=== PATIENT | male | born 1955 | race Caucasian/White ===

== ENCOUNTER 2024-08-15 11:38 | Inpatient (IN) | payer OTHER, SELFPAY ==
[2024-08-15] VITALS (8 sets, daily range): BP systolic 126–180; BP diastolic 65–92; BMI 35.6
[2024-08-15 06:39] LABS: % Basophils 0.2 % (0-2); % Eosinophils 4.1 % (0-6); % Immature Granulocytes 0.2 % (0-0.5); % Lymphocytes 4.3 % (20.5-51.1); % Monocytes 6.5 % (1.7-9.3); % Neutrophils 84.7 % (42.2-75.2); ALT (SGPT) 45 U/L (0-50); AST (SGOT) 33 U/L (17-59); Absolute Eosinophils 0.2 10^3/uL (0-0.7); Absolute Lymphocytes 0.2 10^3/uL (1.2-3.4); Absolute Monocytes 0.3 10^3/uL (0.1-0.6); Absolute Neutrophils 3.5 10^3/uL (1.4-6.5); Albumin 4.5 g/dl (3.5-5.0); Alkaline Phosphatase 63 U/L (38-126); Blood Urea Nitrogen 17 mg/dl (9-20); Calcium 9.2 mg/dl (8.4-10.2); Carbon Dioxide 23 mmol/L (22-30); Chloride 111 mmol/L (98-107); Estimated Creatinine Clearance 118 ml/min; Glucose 107 mg/dl (70-99); Hematocrit 42.9 % (39.0-52.0); Hemoglobin 15.2 g/dL (13.0-18.0); Mean Corp Hgb Conc. 35.4 g/dL (33.0-37.0); Mean Corpuscular Volume 93.1 fL (80.0-94.0); Mean Platelet Volume 12.1 fL (7.4-10.4); Nucleated Red Blood Cells % 0 % (-); Platelet Count 97 10^3/uL (130-400); Potassium 4.6 mmol/L (3.5-5.1); Red Blood Cell Count 4.61 10^6/uL (4.70-6.10); Red Cell Dist. Width 11.9 % (11.5-14.5); Sodium 139 mmol/L (135-145); Total Bilirubin 0.7 mg/dl (0.2-1.3); Total Protein 6.6 g/dl (6.3-8.2); White Blood Cell Count 4.2 10^3/uL (4.8-10.8); eGFR > 60.00
--- NOTE | 2024-08-15 06:49 | ED.GENMED ---
History of Present Illness
General
Chief Complaint: Allergic Reaction
Source: patient and spouse
Exam Limitations: none
Time Seen by Provider: 08/15/24 06:36
Nursing documentation reviewed up to this point in time: agreed with
History of Present Illness
History of Present Illness:
69-year-old male with past medical history of rheumatoid arthritis, hyperlipidemia who presents to the emergency department with his for evaluation of rash and myalgias. Patient reports history of RA and he takes weekly subcutaneous injections
of Actemra. Last week he developed a very small ulcer on the plantar surface of the left foot with some surrounding redness; he has a history of severe infections and given immunocompromise on biologic agent he was started by his primary doctor on
cephalexin and Bactrim which he has been taking x 7 days without a missed dose. The small wound has essentially completely healed and he longer has any redness on the foot. He was supposed to complete a 14-day course of antibiotics. Yesterday he
woke up and his noticed that he had some redness in his right eye. As the morning went on started to develop rash in the neck/upper chest as well as on the arms; no rash on the back or abdomen or on the legs. Rash is nonpruritic, mildly
painful�'like a sunburn.' Today started to develop headache, joint pains, stiffness in the neck and back and generalized achiness. No fever noted. Came to the emergency room for evaluation. He does note that he is typically told to hold his
Actemra when he has an infection however he did take his normal dose yesterday given improvement in his symptoms on the left foot.
Past History
Past History
ED Past Medical History: Hypercholesterolemia and Other (RA, right knee MRSA abscess/cellulitis)
ED Past Surgical History: Orthopedic
Patient has exhibited threatening behavior?: No
PSI?: No
Social History
Tobacco: Non-smoker
Alcohol: Occasional
Personal:
Living: with family
Employment: Employed
Family History
Family History: CAD
Review of Systems
Review of Systems
All Other Systems: ROS reviewed and negative except as documented in HPI and ROS
Constitutional: Reports fatigue; Denies fever
EENT: Denies sore throat or runny nose
Respiratory: Denies cough or trouble breathing
Cardiac: Denies chest pain or palpitations
ABD/GI: Denies abdominal pain, nausea or vomiting
: Denies flank pain
Musculoskeletal: Reports joint pain, muscle pain, muscle stiffness, neck pain and back pain
Skin: Reports rash
Neurological: Reports headache
Phy Exam
Physical Exam
Physical Exam:
General: Awake, alert; no acute distress
Head: Normocephalic, atraumatic
Eyes: Patient has some slight conjunctival injection bilaterally; pupils equal round reactive to light bilaterally
Throat: Airway intact, handling secretions, no cracking of the lips, no ulcerations noted in the mouth or on the tongue
Neck: Trachea midline, supple without meningismus
Lungs: Clear to auscultation bilaterally, no wheezing, rales, rhonchi
Heart: Regular rate and rhythm, no murmurs, gallops, or rubs
Abd: Soft, non distended, nontender
Neuro: No gross deficits
Skin: Patient has erythematous maculopapular rash anterior neck and bilateral upper extremities right greater than left as well as on the cheeks bilaterally and slightly on the forehead
Extremities: Patient does have small right knee effusion, no other joint effusions noted, good range of motion in all joints although has mild pain and stiffness on range of motion of the right knee; good pulses in all extremities; on exam of the
left foot previously reported wound seems to have healed up and there is no erythema, warmth, crepitus
Scores
Heart Failure Risk
Heart Failure Risk Score: Not Applicable
Heart Score for Chest Pain Patients
STEMI patient?: Not applicable
Withdrawal Assessment of Alcohol
Withdrawal Assessment Completed?: Not applicable
Course
Orders/Labs/Results
Orders:
Orders
08/15/24 06:15
CMP [Comprehensive Metabolic Panel] Urgent
Complete Blood Count/With Diff Urgent
Abnormal Lab Results
08/15/24
06:15
WBC 4.2 L 10^3/uL
(4.8-10.8)
RBC 4.61 L 10^6/uL
(4.70-6.10)
MCH 33.0 H pg
(27.0-31.0)
Plt Count 97 L 10^3/uL
(130-400)
MPV 12.1 H fL
(7.4-10.4)
Absolute Lymphs (auto) 0.2 L 10^3/uL
(1.2-3.4)
Neutrophils % 84.7 H %
(42.2-75.2)
Lymphocytes % 4.3 L %
(20.5-51.1)
Chloride 111 H mmol/L
(98-107)
Glucose 107 H mg/dl
(70-99)
08/15/24 06:15
08/15/24 06:15
Vital Signs
Initial and Last Documented VS:
Initial Vital Signs
Temp Pulse Resp BP Pulse Ox
36.6 C 78 20 180/92 98
08/15/24 04:59 08/15/24 04:59 08/15/24 04:59 08/15/24 04:59 08/15/24 04:59
Last Documented Vital Signs
Temp Pulse Resp BP Pulse Ox
36.6 C 74 15 126/65 99
08/15/24 04:59 08/15/24 07:15 08/15/24 07:15 08/15/24 07:00 08/15/24 07:15
MDM/Problems Addressed
Differential Diagnosis Includes:
Drug rash, allergic reaction, DRESS, SJS
MDM/Problems Addressed:
69-year-old male with history as noted presents with generalized achiness and rash that has developed in the setting of recent treatment with Bactrim/Keflex for minor left foot infection; he is also on Actemra and had a dose yesterday. He has no
fever here�hypertensive in triage normalized by my assessment, rest of vitals normal. Physical exam as documented notable for maculopapular rash mainly on the arms and anterior neck/upper chest. Rash appears most consistent with a drug rash likely
triggered by recent antibiotics (Bactrim would be most likely offending agent). He has no fever, reassuring labs (no anemia, neutropenia, thrombocytopenia, no leukocytosis, no eosinophilia, normal LFTs, normal renal function) which goes against
diagnosis of DRESS. He does however have systemic prodrome and conjunctivitis which raises some suspicion for Hawthorne-Kameron syndrome (fortunately he has no blistering/sloughing of the skin and no oral lesions) for this reason I think he should be
hospitalized for close observation and supportive care, immediately discontinue antibiotics. Case discussed with hospitalist for admission.
Chronic conditions affecting care:
Rheumatoid arthritis
Acute Exacerbation and/or Progression of Chronic Illness:
Acutely hypertensive improved without intervention�no indication for emergent antihypertensives
Acute Exacerbation and/or Progression of Chronic Illness: HTN
*Pulse Oximetry
Patient hypoxic: no
*Critical Care Note
Total Time (30-74mins, 75-104mins- exclusive of procedures): Not Applicable
Data Reviewed
Review of Other/Old Records Reveals: Labs and Records
Source: patient and spouse
Patient Management
Discussion with other providers: Hospitalist (Discussed with hospitalist)
Escalation/DeEscalation of care consider admission/obs:
Admission indicated
ED Attending Note
-
Portions of this chart may have been created with voice recognition software.� Occasional wrong word or��sound alike� substitutions may have occurred due to the inherent limitations of voice recognition software.
Discharge Plan
Departure
Patient Disposition: Admit
Date of Disposition: 08/15/24
Time of Disposition: 07:18
Admit to doctor: [facility]
Presentation/result/management discussed w/ accepting MD/DO: Hospitalist
Discharge Problem:
Hawthorne-Kameron syndrome
Prescriptions:
No Action
diclofenac sodium 75 MG tablet,delayed release (DR/EC)
75 mg PO DAILY
Actemra 162 MG/0.9 ML syringe
162 mg SC SA
rosuvastatin 5 mg Tablet
5 mg PO DAILY
duloxetine 60 mg Capsule,Delayed Release(Dr/Ec)
60 mg PO BID
acetaminophen 325 mg Tablet
650 mg PO Q4HPRN PRN (Reason: mild pain/FINE/temp> 100.4F) Qty: 30 0RF
cephalexin 500 mg capsule
500 mg PO BID
Referrals:
Terence Scott DO [Family Provider] -
Interventions
Interventions:
*Risk Screen - Suicide Last Done: 08/15/24 04:59
*Neglect/Abuse Screening Last Done: 08/15/24 04:59
*ED- Fall Risk Assessment Last Done: 08/15/24 07:21
*ED COVID-19 Vaccine History Last Done: 08/15/24 07:21
ED- Cardiac Assessment Last Done: 08/15/24 07:21
ED- Pulmonary Assessment Last Done: 08/15/24 07:21
ED-Skin Assessment Last Done: 08/15/24 07:21
Discharge Date and Time
Print Language: LITHUANIAN
[2024-08-15 09:28] LABS: INR 1.06; PT 14.1 Sec (11.4-14.6)
[2024-08-15 09:29] LABS: APTT 27.7 Sec (23.4-35.0)
[2024-08-15 10:16] LABS: C-Reactive Protein < 5.00 mg/L (0.0-10.00)
[2024-08-15 10:59] LABS: Erythrocyte Sed Rate 3 mm/hour (0-20)
--- NOTE | 2024-08-15 11:25 | HPS.HSE ---
Family Physician
-
Family Physician: Terence Scott
Chief Complaint
-
Eye pain, skin rash, neck stiffness, bilateral knee pain
History of Present Illness
Patient with a history of rheumatoid arthritis on Actemra and recurrent cellulitis noted at left plantar foot ulcer that week ago and was put on cephalexin and Bactrim by PCP. Today is day 8 of antibiotic. It was prescribed for 14 days.
The ulcer and surrounding redness has resolved.
Yesterday he started to notice right eye burn and then left eye burn. noticed right face was red. He started to have redness involving bilateral arms like a sunburn with the pain. Nonpruritic. No rash elsewhere.
Denies any oral ulcers.
He started to have neck stiffness and back ache. He started to also notice bilateral knee pain and swelling. The right knee swelling is quite obvious and was having difficulty to weight-bear.
He stopped taking his Bactrim thinking that may be a reaction to it. He did take his dose of Actemra yesterday.
He does not give a history of fever or chills. He has been weak in general.
No trauma denies.
He has history of penicillin and has tolerated cephalosporins in the past.
Denies any dysuria or genital area ulceration.
No shortness of breath, chest pain, nausea vomiting or diarrhea.
No dizziness or lightheadedness.
Medical History
Past Medical History
Past Medical History: Reports Other (RA on immunologic, MRSA right lower extremity with abscess in the past, HLD, depression)
Past Surgical History: Reports Other (Bursa removal right knee June 2022 with MRSA)
Social History
Tobacco: Non-smoker
Alcohol: Occasional (2 drinks on the weekends)
Personal:
Living: With Family ()
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
Family History
Family History: Not pertinent
Allergies / Home Medications
Allergies reflects when Allergies were last updated in [facility].
Home Medications with original date entered in [facility]
Allergy/Medication List:
Allergies
Allergy/AdvReac Type Severity Reaction Status Date / Time
latex Allergy Rash Verified 07/18/22 06:17
Penicillins Allergy Rash; Verified 07/18/22 12:41
tolerates
cephalosporins
Home Medications
diclofenac sodium 75 mg tablet,delayed release 75 mg PO DAILY Pain 02/04/18
tocilizumab 162 mg/0.9 mL subcutaneous syringe (Actemra) 162 mg SC SA Rheumatoid arthritis 02/04/18
duloxetine 60 mg capsule,delayed release 60 mg PO BID Depression 02/11/22
rosuvastatin 5 mg tablet 5 mg PO DAILY High cholesterol 02/11/22
mupirocin 2 % topical ointment 1 applic topical . DIRECTED 01/07/23
Review of Systems
-
A 12 point ROS was completed and negative except as noted: Yes
Physical Exam
Vital Signs
Vital Signs
Temp Pulse Resp BP Pulse Ox
97.8 F 78 19 131/65 99
08/15/24 04:59 08/15/24 11:00 08/15/24 11:00 08/15/24 10:00 08/15/24 07:45
Physical Exam
General: Comfortable
HEENT: Moist mucous membranes and Other (no redness of eyes;no teary eyes)
Respiratory: Clear and Non Labored Respirations; No Accessory Resp Muscle Use
Cardiac: S1/S2 and Regular Rhythm; No Tachycardia
GI: Soft, Non Tender, Non Distended and Normal Bowel Sounds
Musculoskeletal: Other (Right knee effusion. Dry scabbed lesion on the right knee)
Skin: Rash (Redness over bilateral arms like erythroderma but no bullae or macular papular rash elsewhere.)
Neuro: AO x 3; No No Motor Deficits, Slurred Speech, Facial Droop or Tremors
Psych: Calm; No Confused
Laboratory Results
-
08/15/24 06:15
08/15/24 06:15
Laboratory Results
PT 14.1 Sec (11.4-14.6) 08/15/24 09:09
INR 1.06 08/15/24 09:09
APTT 27.7 Sec (23.4-35.0) 08/15/24 09:09
Total Bilirubin 0.7 mg/dl (0.2-1.3) 08/15/24 06:15
AST 33 U/L (17-59) 08/15/24 06:15
ALT 45 U/L (0-50) 08/15/24 06:15
Alkaline Phosphatase 63 U/L (38-126) 08/15/24 06:15
Data Reviewed
-
Lab Data: Labs Reviewed by me
Impression/Plan
-
Acute onset of painful eyes, rash on arms, neck stiffness and bilateral knee pain and effusion while on antibiotics with cephalexin and Bactrim. No systemic toxicity. White count is normal. His levels are normal. ESR CRP is also normal. LFTs
normal. Based on the symptomatology suspect more likely serum sickness like reaction to Bactrim.
Check complement levels. Hold Bactrim. Hold on steroids.
His systemic symptoms are nonspecific-rule out any infectious etiology-consult ID
Arthralgia associated serum sickness. Not sure if effusions would be evident. He has prominent right knee effusion which is symptomatic. Rule out this is a rheumatoid arthritis flare. Consult rheumatology
History of rheumatoid arthritis on Actemra
Hyperlipidemia-continue with statins
Depression-continue duloxetine
[2024-08-15] MEDS: TYLENOL 650 MG PO ×2 (12:00→19:05)
--- NOTE | 2024-08-15 14:22 | CON.ID ---
Consultation
-
Date/Time Consultation Requested: August 15, 2024 1154
Date/Time Consultation Performed: August 15, 2024 1420
Requesting Provider: Dr. Abraham Montgomery
Performing Provider: Dr. Altagracia Lujan
Reason for Consultation: History of MRSA cellulitis possible drug reaction
Chief Complaint / Past History
Chief Complaint
Rash, eye pain, joint pains
History of Present Illness
69-year-old male with history of rheumatoid arthritis on Actemra, history of recurrent MRSA soft tissue abscess last being June 2022 who recently developed a left plantar wound with erythema. His primary care physician prescribed cephalexin 1
tablet twice daily and Bactrim 1 tablet twice daily to complete 14 days. He was on day 9 of the antibiotic yesterday. His noted that the patient woke up with somewhat red conjunctiva right eye. Patient did not feel anything. He gave himself
the Actemra around 7 AM. At 3 PM, his noted a rash that started on his right cheek. Patient was not feeling well complaining of joint pains. Both eyes were burning. He did take his antibiotics that evening then went to bed. Overnight he
developed worsening neck pain, shoulder pain, bilateral knee pain, headache. This morning woke up and noted to have sun-burn like rash on sun-exposed areas of face, neck, and bilateral arms. Rash is itchy. No fevers. No chills. No mouth lesions.
Patient tolerated Bactrim twice in the past. He also tolerated cephalexin in the past. No other new medicines. No ill contacts that he is aware of.
Past History
Additional Past Medical History:
Rheumatoid arthritis on Actemra.
Dyslipidemia.
history of recurrent MRSA soft tissue abscess
R knee MRSA septic bursitis s/p bursectomy 06/2022
History of right distal radius ORIF.
Right knee meniscal repair, 2014.
Allergy History:
latex Allergy (Verified 08/15/24 05:03)
Rash
Penicillins Allergy (Verified 08/15/24 05:03)
Rash; tolerates cephalosporins
Medications Reviewed: Yes
Current Antibiotics:
None
Social History
Tobacco: Former Smoker
Alcohol: None
Drug: None
Personal:
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
Family History
Family History: Not Pertinent
Review of Systems
Review of Systems
General: Negative Fever, Chills or Change in Appetite
HEENT: Negative Sinus Problems or Pharyngitis
Cardiovascular: Negative Chest Pain
Respiratory: Negative Dyspnea or Cough
Gasteroenterology: Negative Nausea, Vomiting or Diarrhea
Genital / Urological: Flank Pain; Negative Dysuria
Endocrine: Weakness
Musculoskeletal: Joint Pain, Joint Swelling (knees) and Myalgias
Skin / Hair / Nails: Rash and Pruritis
Neurological: Negative Dizziness
All systems: All other systems were reviewed and were negative
Vital Signs
Temp Pulse Resp BP Pulse Ox
97.8 F 78 19 131/65 99
08/15/24 04:59 08/15/24 11:00 08/15/24 11:00 08/15/24 10:00 08/15/24 07:45
Physical Exam
Physical Exam
Constitutional: Non-toxic
Head: Other (No frontal or maxillary sinus tenderness)
Eyes: Sclera Anicteric and Other (bilateral conjunctiva mildly injected)
Pharynx: Benign
Oral: No Ulcers
Cardiovascular: Regular Rate and S1/S2
Pulmonary: Clear
Gastrointestinal: Soft, Non Tender and Non Distended
Genito-Urinary: Negative CVA Tenderness
Musculoskeletal: Joint Effusion (R knee>L knee, no erythema)
Skin: Rash (Intense erythema face, neck, bilateral arms; maculopapular rash on medial arms. )
Neurological: AO x 3
Lab / Diagnostic Study Results
08/15/24 06:15
08/15/24 06:15
Abs Immat Gran (auto) 0.0 10^3/uL (0-0.05) 08/15/24 06:15
Absolute Neuts (auto) 3.5 10^3/uL (1.4-6.5) 08/15/24 06:15
Absolute Lymphs (auto) 0.2 10^3/uL (1.2-3.4) L 08/15/24 06:15
Absolute Monos (auto) 0.3 10^3/uL (0.1-0.6) 08/15/24 06:15
Absolute Basos (auto) 0.0 10^3/uL (0-0.2) 08/15/24 06:15
Immature Gran % 0.2 % (0-0.5) 08/15/24 06:15
Neutrophils % 84.7 % (42.2-75.2) H 08/15/24 06:15
Lymphocytes % 4.3 % (20.5-51.1) L 08/15/24 06:15
Monocytes % 6.5 % (1.7-9.3) 08/15/24 06:15
Eosinophils % 4.1 % (0-6) 08/15/24 06:15
Basophils % 0.2 % (0-2) 08/15/24 06:15
ESR 3 mm/hour (0-20) 08/15/24 06:15
PT 14.1 Sec (11.4-14.6) 08/15/24 09:09
INR 1.06 08/15/24 09:09
C-Reactive Protein < 5.00 mg/L (0.0-10.00) 08/15/24 06:15
Microbiology Results
Micro:
08/15/24 13:21 Blood Culture - Pending
Blood/Venous
08/15/24 12:01 Blood Culture - Pending
Blood/Venous
Assessment / Plan
# Sunburn pruritic rash, joint pains, bilateral conjunctivitis
# Suspect immune-mediated reaction to Bactrim (despite previous tolerance to Bactrim twice in the past)
# Leukopenia and thrombocytopenia - likely from myelosuppression due to Bactrim
-Avoid Bactrim
- Supportive care.
- No objection to steroid.
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
Rheumatoid arthritis on Actemra.
Dyslipidemia.
history of recurrent MRSA soft tissue abscess
R knee MRSA septic bursitis s/p bursectomy 06/2022
History of right distal radius ORIF.
Right knee meniscal repair, 2014.
Care Review
Plan reviewed with: Physician (Dr. Montgomery)
[2024-08-15] MEDS: VOLTAREN 75 MG PO (15:20)
[2024-08-15] MEDS: CRESTOR 5 MG PO (15:20)
[2024-08-15] MEDS: HEPARIN 5000 UNITS SC (15:22)
[2024-08-15] MEDS: CYMBALTA DELAYED RELEASE 60 MG PO (20:21)
[2024-08-16] VITALS (8 sets, daily range): BP systolic 116–154; BP diastolic 57–86; BMI 35.5; BMI 34.9
[2024-08-16] MEDS: HEPARIN SC (00:09)
[2024-08-16] MEDS: TYLENOL 650 MG PO ×3 (02:12→15:23)
[2024-08-16 06:35] LABS: % Basophils 0.5 % (0-2); % Eosinophils 8.6 % (0-6); % Immature Granulocytes 0.5 % (0-0.5); % Lymphocytes 16.3 % (20.5-51.1); % Monocytes 13.1 % (1.7-9.3); Absolute Eosinophils 0.2 10^3/uL (0-0.7); Absolute Lymphocytes 0.4 10^3/uL (1.2-3.4); Absolute Monocytes 0.3 10^3/uL (0.1-0.6); Absolute Neutrophils 1.4 10^3/uL (1.4-6.5); Hematocrit 41.5 % (39.0-52.0); Hemoglobin 14.5 g/dL (13.0-18.0); Mean Corp Hgb Conc. 34.9 g/dL (33.0-37.0); Mean Corpuscular Hgb 32.6 pg (27.0-31.0); Mean Corpuscular Volume 93.3 fL (80.0-94.0); Mean Platelet Volume 11.7 fL (7.4-10.4); Nucleated Red Blood Cells % 0 % (-); Platelet Count 93 10^3/uL (130-400); Red Blood Cell Count 4.45 10^6/uL (4.70-6.10); Red Cell Dist. Width 11.9 % (11.5-14.5); White Blood Cell Count 2.2 10^3/uL (4.8-10.8)
[2024-08-16 06:48] LABS: Blood Urea Nitrogen 13 mg/dl (9-20); Calcium 8.8 mg/dl (8.4-10.2); Carbon Dioxide 23 mmol/L (22-30); Chloride 112 mmol/L (98-107); Estimated Creatinine Clearance > 125 ml/min; Glucose 124 mg/dl (70-99); Potassium 4.5 mmol/L (3.5-5.1); Sodium 139 mmol/L (135-145); eGFR > 60.00
[2024-08-16 06:56] LABS: Complement C3 97 mg/dl (88-165)
[2024-08-16] MEDS: CYMBALTA DELAYED RELEASE 60 MG PO ×2 (08:36→20:28)
[2024-08-16] MEDS: CRESTOR 5 MG PO (08:36)
[2024-08-16] MEDS: HEPARIN 5000 UNITS SC ×3 (08:37→23:22)
[2024-08-16] MEDS: VOLTAREN 75 MG PO (09:34)
--- NOTE | 2024-08-16 10:22 | CM ---
CM met with pt and spouse bedside
Pt resides with spouse and his elderly in-laws in a 2SH with 3STE
Full flight to 2nd floor
Pt is indep with his ADLs
Denies use of DMEs
Noted financial difficulties with affording spouse's medications for terminal cancer
Now she is patient assistance programs which has greatly helped
PCP- Terence Scott
Rx- [facility]
Discharge Disposition- anticipate home no needs
--- NOTE | 2024-08-16 10:46 | W.PN.ID1 ---
Date of Service
Date of Service: August 16, 2024
Today's Communication
Continue supportive care.
Assessment / Plan
# Sunburn pruritic rash, joint pains, bilateral conjunctivitis
# Suspect immune-mediated reaction to Bactrim (despite previous tolerance to Bactrim twice in the past)
# Leukopenia and thrombocytopenia - likely from myelosuppression due to Bactrim
- Continue supportive care
- Follow cbc
- No infection issue at this time.
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
Rheumatoid arthritis on Actemra.
Dyslipidemia.
history of recurrent MRSA soft tissue abscess
R knee MRSA septic bursitis s/p bursectomy 06/2022
History of right distal radius ORIF.
Right knee meniscal repair, 2014.
Chief Complaint
-: Other (rash, joint pains)
Subjective / Review of Systems
Joint pains improving. Able to ambulate to bathroom this am.
Vital Signs / Physical Exam
Vital Signs
Vital Signs
Temp Pulse Resp BP Pulse Ox
98.2 F 72 16 122/86 96
08/16/24 07:15 08/16/24 02:10 08/16/24 02:10 08/16/24 06:08 08/16/24 06:08
Physical Exam
Constitutional: No Acute Distress, Comfortable and Non-toxic
Eyes: Other (Bilateral conjunctiva injected)
Cardiovascular: Regular Rate and S1/S2
Pulmonary: Clear
Gastrointestinal: Soft, Non Tender, Non Distended and Normal Bowel Sounds
Musculoskeletal: Joint Swelling (Right knee > L knee. No erythema, no warmth. ROM intact)
Skin: Rash (Erythroderma on face, BLE less intense)
Wound: Other (Left plantar shallow small wound dry, no surrounding erythema)
Neurological: AO x 3
Objective Data
Lab Data
Lab Results
08/16/24 06:08
08/16/24 06:08
ESR 3 mm/hour (0-20) 08/15/24 06:15
PT 14.1 Sec (11.4-14.6) 08/15/24 09:09
INR 1.06 08/15/24 09:09
APTT 27.7 Sec (23.4-35.0) 08/15/24 09:09
Estimated Creat Clear > 125 ml/min 08/16/24 06:08
Total Bilirubin 0.7 mg/dl (0.2-1.3) 08/15/24 06:15
AST 33 U/L (17-59) 08/15/24 06:15
ALT 45 U/L (0-50) 08/15/24 06:15
Alkaline Phosphatase 63 U/L (38-126) 08/15/24 06:15
C-Reactive Protein < 5.00 mg/L (0.0-10.00) 08/15/24 06:15
Most recent labs reviewed.
Micro Results:
08/16/24 09:50 MRSA Screen - Pending
Nose
08/15/24 13:21 Blood Culture - Pending
Blood/Venous
08/15/24 12:01 Blood Culture - Pending
Blood/Venous
--- NOTE | 2024-08-16 11:50 | W.PN.HOSP.TC ---
Today's Communication/Plan
-
Ice pack
Antihistamine
Trial of steroids
Assessment / Plan
Assessment / Plan
General: Comfortable
HEENT: Moist mucous membranes and Other (no redness of eyes;no teary eyes)
Respiratory: Clear and Non Labored Respirations; No Accessory Resp Muscle Use
Cardiac: S1/S2 and Regular Rhythm; No Tachycardia
GI: Soft, Non Tender, Non Distended and Normal Bowel Sounds
Musculoskeletal: Other (Right knee effusion. Dry scabbed lesion on the right knee)
Skin: Rash (Redness over bilateral arms like erythroderma but no bullae or macular papular rash elsewhere.)
Neuro: AO x 3; No No Motor Deficits, Slurred Speech, Facial Droop or Tremors
Psych: Calm; No Confused
#Pruritic rash, conjunctivitis bilateral, and joint pain suspected due to serum sickness from Bactrim
#Pruritic rash could also be sunburn rash
#Leukopenia and chronic thrombocytopenia
Patient remains afebrile. ESR normal. Complement level normal. Vital signs stable. Rash seems to be improving.
Hydroxyzine as needed
Ice packs
Trial of steroids
Follow-up on the MRSA screen and blood cultures-doubt infection
#History of rheumatoid arthritis on Actemra
Chronic right knee pain and swelling improving currently
Trial of steroids
#Hyperlipidemia-continue with statins
#Depression-continue duloxetine
#Obesity due to excess calories affects all aspects of medical care
Weight loss will help with overall joint pains
DVT prophylaxis with heparin
Discussed with spouse at bedside in detail
Anticipated Discharge: Within 24 hours
Subjective/Interval History
-
Date of Service: August 16, 2024
States of improvement in joint pains
States able to ambulate little bit better compared to yesterday
States of improvement in rash
Objective Data
-
Labs:
Laboratory Results
08/16/24
06:08
WBC 2.2 L*
Hgb 14.5
Hct 41.5
Plt Count 93 L
Sodium 139
Potassium 4.5
Chloride 112 H
Carbon Dioxide 23
BUN 13
Creatinine 0.7
Glucose 124 H
Calcium 8.8
Vital Signs:
Vital Signs
Temp Pulse Resp BP Pulse Ox
97.8 F 72 16 122/86 96
08/16/24 11:10 08/16/24 02:10 08/16/24 02:10 08/16/24 06:08 08/16/24 06:08
Data Reviewed
-
Total Time Spent with Patient (in minutes): 55
[2024-08-16] MEDS: DELTASONE 50 MG PO (12:30)
[2024-08-16] MEDS: PEPCID 20 MG PO (12:35)
[2024-08-16] MEDS: ATARAX 10 MG PO (15:23)
[2024-08-17 07:00] VITALS: BP 140/80
[2024-08-17] MEDS: DELTASONE 50 MG PO (07:44)
[2024-08-17] MEDS: TYLENOL 650 MG PO (07:44)
[2024-08-17] MEDS: PEPCID 20 MG PO (07:45)
[2024-08-17] MEDS: CRESTOR 5 MG PO (07:45)
[2024-08-17] MEDS: VOLTAREN 75 MG PO (07:45)
[2024-08-17] MEDS: HEPARIN 5000 UNITS SC (07:45)
[2024-08-17] MEDS: CYMBALTA DELAYED RELEASE 60 MG PO (07:45)
[2024-08-17 08:13] LABS: % Basophils 0.2 % (0-2); % Eosinophils 0.9 % (0-6); % Immature Granulocytes 0.3 % (0-0.5); % Lymphocytes 12.3 % (20.5-51.1); % Monocytes 8.4 % (1.7-9.3); % Neutrophils 77.9 % (42.2-75.2); Absolute Eosinophils 0.1 10^3/uL (0-0.7); Absolute Lymphocytes 0.7 10^3/uL (1.2-3.4); Absolute Monocytes 0.5 10^3/uL (0.1-0.6); Absolute Neutrophils 4.6 10^3/uL (1.4-6.5); Hematocrit 40.9 % (39.0-52.0); Hemoglobin 14.7 g/dL (13.0-18.0); Mean Corp Hgb Conc. 35.9 g/dL (33.0-37.0); Mean Corpuscular Hgb 33.2 pg (27.0-31.0); Mean Corpuscular Volume 92.3 fL (80.0-94.0); Mean Platelet Volume 11.6 fL (7.4-10.4); Nucleated Red Blood Cells % 0 % (-); Platelet Count 119 10^3/uL (130-400); Red Blood Cell Count 4.43 10^6/uL (4.70-6.10); Red Cell Dist. Width 11.7 % (11.5-14.5); White Blood Cell Count 5.9 10^3/uL (4.8-10.8)
[2024-08-17 08:32] LABS: Blood Urea Nitrogen 16 mg/dl (9-20); Calcium 9.7 mg/dl (8.4-10.2); Carbon Dioxide 26 mmol/L (22-30); Chloride 107 mmol/L (98-107); Estimated Creatinine Clearance > 125 ml/min; Glucose 104 mg/dl (70-99); Potassium 4.1 mmol/L (3.5-5.1); Sodium 139 mmol/L (135-145); eGFR > 60.00
--- NOTE | 2024-08-17 11:13 | PN.CDI ---
CDI
- -
CDI:
Physician Documentation Request
Admit Date: 08/15/24 11:38
Dear Doctor Flaquito,
Please review the following and provide your response in the progress notes.
Clinical Indicators:
The diagnosis of Hawthorne-Kameron syndrome was documented in ED record, but is not consistently noted in subsequent documentation.
Please clarify the following:
____ - Hawthorne-Kameron syndrome was present on admission
____ - Hawthorne-Kameron syndrome was ruled out
____ - Other
Use of terms such as suspected, likely, concern for, or probable (associated with a specific diagnosis that is being evaluated, monitored, or treated as if it exists) are acceptable and can be coded in the inpatient setting, when documented at the
time of discharge.
Thank you,
Zaida Gary RN, BSN
CDI Specialist
tiger text
Please use your independent medical judgment in providing your response.
--- NOTE | 2024-08-17 11:15 | W.PN.ID1 ---
Date of Service
Date of Service: August 17, 2024
Today's Communication
See below.
Assessment / Plan
# Suspect immune-mediated reaction to Bactrim (despite previous tolerance to Bactrim twice in the past)
# Sunburn pruritic rash, joint pains, R>L knee induration, bilateral conjunctivitis - all improving, except for right knee.
# Leukopenia and thrombocytopenia (myelosuppression due to Bactrim) - resolving
- Continue supportive care
-Currently on prednisone.
- Overall improving except right knee. Consider Ortho eval.
Immune-mediated drug reaction symptoms can take several weeks to resolve.
- No infection issue at this time.
# Conditions [employer]
Rheumatoid arthritis on Actemra.
Dyslipidemia.
history of recurrent MRSA soft tissue abscess
R knee MRSA septic bursitis s/p bursectomy 06/2022
History of right distal radius ORIF.
Right knee meniscal repair, 2014.
Chief Complaint
-: Other (rash, joint pains)
Subjective / Review of Systems
Overall feeling better except for right knee discomfort, difficulty with ambulation.
Vital Signs / Physical Exam
Vital Signs
Vital Signs
Temp Pulse Resp BP Pulse Ox
97.5 F 67 18 140/80 99
08/17/24 07:00 08/17/24 07:00 08/17/24 07:00 08/17/24 07:00 08/17/24 07:00
Physical Exam
Constitutional: No Acute Distress and Comfortable
Eyes: Other (Bilateral conjunctiva now clear); Negative No Conjunctival Hemorrhage
Oropharyngeal: Benign
Cardiovascular: Regular Rate and S1/S2
Pulmonary: Clear
Gastrointestinal: Soft, Non Tender, Non Distended and Normal Bowel Sounds
Musculoskeletal: Other (Left knee swelling resolved; right knee induration improved, no erythema/warm; right knee ROM limited)
Skin: Rash (Face, BUE erythroderma improving)
Neurological: AO x 3
Objective Data
Lab Data
Lab Results
08/17/24 07:36
08/17/24 07:36
ESR 3 mm/hour (0-20) 08/15/24 06:15
PT 14.1 Sec (11.4-14.6) 08/15/24 09:09
INR 1.06 08/15/24 09:09
APTT 27.7 Sec (23.4-35.0) 08/15/24 09:09
Estimated Creat Clear > 125 ml/min 08/17/24 07:36
Total Bilirubin 0.7 mg/dl (0.2-1.3) 08/15/24 06:15
AST 33 U/L (17-59) 08/15/24 06:15
ALT 45 U/L (0-50) 08/15/24 06:15
Alkaline Phosphatase 63 U/L (38-126) 08/15/24 06:15
C-Reactive Protein < 5.00 mg/L (0.0-10.00) 08/15/24 06:15
Most recent labs reviewed.
Micro Results:
08/15/24 13:21 Blood Culture - Preliminary
Blood/Venous No Growth in 24 hours- Final report to follow
08/15/24 12:01 Blood Culture - Preliminary
Blood/Venous No Growth in 24 hours- Final report to follow
08/16/24 09:50 MRSA Screen - Pending
Nose
Care Review
Plan reviewed with: Physician (Dr. Huddleston)
--- NOTE | 2024-08-17 11:26 | W.PN.HOSP.TC ---
Today's Communication/Plan
-
dc home
OP rheum f/u
Assessment / Plan
Assessment / Plan
General: Comfortable
HEENT: Moist mucous membranes and Other (no redness of eyes;no teary eyes)
Respiratory: Clear and Non Labored Respirations; No Accessory Resp Muscle Use
Cardiac: S1/S2 and Regular Rhythm; No Tachycardia
GI: Soft, Non Tender, Non Distended and Normal Bowel Sounds
Musculoskeletal: Other (Right knee swelling improved significantly. Dry scabbed lesion on the right knee)
Skin: mild Redness over bilateral arms , no rash noted on upper back or elbow region
Neuro: AO x 3; No No Motor Deficits, Slurred Speech, Facial Droop or Tremors
Psych: Calm; No Confused
#Pruritic rash, conjunctivitis bilateral, and joint pain suspected due to serum sickness from Bactrim
#Pruritic rash could also be sunburn rash
#Leukopenia and chronic thrombocytopenia
Patient remains afebrile. ESR normal. Complement level normal. Vital signs stable. Rash seems to be almost resolved
Hydroxyzine as needed
Ice packs
Trial of steroids
Follow-up on the MRSA screen and blood cultures-doubt infection
d/w with Dr. Rudd (Dr. Avery partner who is patient primary belt glass sander)
#History of rheumatoid arthritis on Actemra
Chronic right knee pain and swelling improving currently
Trial of steroids
#Hyperlipidemia-continue with statins
#Depression-continue duloxetine
#Obesity due to excess calories affects all aspects of medical care
Weight loss will help with overall joint pains
DVT prophylaxis with heparin
More than 30 minutes spent in discharge including
Final examination of the patient
Summarizing hospital stay
Instructions for continuing care to all relevant caregivers
Preparation of discharge records, prescriptions, and referral forms
Total time spent (in minutes): 50
Anticipated Discharge: Today
Subjective/Interval History
-
Date of Service: August 17, 2024
Significant improvement in R knee swelling
Rash almost resolved
Objective Data
-
Labs:
Laboratory Results
08/17/24
07:36
WBC 5.9
Hgb 14.7
Hct 40.9
Plt Count 119 L D
Sodium 139
Potassium 4.1
Chloride 107
Carbon Dioxide 26
BUN 16
Creatinine 0.7
Glucose 104 H
Calcium 9.7
Vital Signs:
Vital Signs
Temp Pulse Resp BP Pulse Ox
97.5 F 67 18 140/80 99
08/17/24 07:00 08/17/24 07:00 08/17/24 07:00 08/17/24 07:00 08/17/24 07:00
I&O
08/16/24 08/17/24 08/18/24
06:59 06:59 06:59
Intake Total 480 / 480
Balance 480 / 480
--- NOTE | 2024-08-17 12:53 | W.DCSUMMARY ---
Discharge Summary
Discharge Data
Date of Admission: 08/15/24
Date of Discharge: 08/17/24
-
Pending Results: No
Hospital Course
69-year-old male past medical history of rheumatoid arthritis, hyperlipidemia, depression, obesity who is presenting from home with conjunctivitis and rash. Patient was taking Bactrim as outpatient for suspected cellulitis. Patient was evaluated
by infectious disease. Patient was found to have leukopenia and chronic thrombocytopenia. It was deemed that patient rash and weakness and joint pain could likely to be due to serum sickness from Bactrim patient blood cultures were negative.
Patient was afebrile. ESR was normal. Complement level was normal. Vital signs were stable. Patient was started on steroids. Patient rash almost resolved. Discussed case with tire repairer and agreed with steroid medication for rheumatoid
arthritis suspected flare. Patient with significant improvement in right knee swelling. Patient was able to work with physical therapy. Patient will follow-up outpatient with tire repairer and if no improvement in swelling then can consider
arthrocentesis as outpatient which patient gets chronically on his right knee. Patient was afebrile. There was no erythema noted on the right knee. Patient had mild scabbed lesion on the right knee. Right knee swelling significantly improved
since admission per patient. Patient was able to ambulate without difficulty. Patient was afebrile be discharged home on prednisone taper regimen with outpatient rheumatology follow-up.
Discharge Plan
-
Patient Disposition: Home (Routine Discharge)
Discharge Diagnosis/Procedures: #Pruritic rash, conjunctivitis bilateral, and joint pain suspected due to serum sickness from Bactrim
#Pruritic rash could also be sunburn rash
#Leukopenia and chronic thrombocytopenia
#Suspeceted rheumatoid arthritis flare up
Condition: Fair
Diet: Low Cholesterol
Activity: As tolerated
Driving Restrictions: As prior to admission
Referrals:
Randee Avery MD [Active] - in less than 1 week
Terence Scott DO [Family Provider] - in less than 1 week
Prescriptions:
New
famotidine 20 mg Tablet
20 mg PO DAILY 7 Days Qty: 7 0RF
hydroxyzine HCl 10 mg Tablet
10 mg PO BIDPRN PRN (Reason: pruritus) Qty: 10 0RF
prednisone 10 mg Tablet
See Rx Instructions .ROUTE .COMPLEX Qty: 30 0RF
Rx Instructions:
Take By Mouth:
40 mg daily x3 days, 30 mg daily x3 days,
20 mg daily x3 days, 10 mg daily x3 days.
Continued
diclofenac sodium 75 MG tablet,delayed release (DR/EC)
75 mg PO DAILY
rosuvastatin 5 mg Tablet
5 mg PO DAILY
duloxetine 60 mg Capsule,Delayed Release(Dr/Ec)
60 mg PO BID
acetaminophen 325 mg Tablet
650 mg PO Q4HPRN PRN (Reason: mild pain/FINE/temp> 100.4F) Qty: 30 0RF
Held
Actemra 162 MG/0.9 ML syringe
162 mg SC SA
Hold Instructions: Resume on 08/27/24. hold till tire repairer follow up.
Discharge Orders:
Discharge Patient (As Directed); Ordered 08/17/24
Ordered By: Thien Huddleston
Discharge Date and Time
Discharge Date/Time: 08/17/24 14:04
Print Language: BELGIAN
[2024-08-17 13:49] VITALS: BP 145/78
--- NOTE | 2024-08-17 14:08 | CM ---
Discharge to home today; PT recommended outpatient therapy
== END 2024-08-17 14:04 | disposition home or self-care (01) | DRG 546 ==
LOC: 1 ACUTE 11:38
PROVIDERS: Emergency Medicine; ADMITTING PHYSICIAN Internal Medicine; ATTENDING PHYSICIAN Hospitalist; CONSULT PHYSICIAN Internal Medicine Infectious Disease; EMERGENCY PHYSICIAN Emergency Medicine; FAMILY PHYSICIAN Internal Medicine
DX: M06.9 Rheumatoid arthritis, unspecified (principal); L51.1 Stevens-Johnson syndrome; D69.6 Thrombocytopenia, unspecified; D72.819 Decreased white blood cell count, unspecified; E78.00 Pure hypercholesterolemia, unspecified; E66.09 Other obesity due to excess calories; F32.A Depression, unspecified; L27.0 Generalized skin eruption due to drugs and medicaments taken internally; Z68.34 Body mass index [BMI] 34.0-34.9, adult; Z87.891 Personal history of nicotine dependence
CPT/HCPCS: 71046; 80048; 80053; 85025; 85610; 85652; 85730; 86140; 86160; 87040; 87070; 97162; 99285